=== PATIENT | male | born 1950 | race Caucasian/White ===

== ENCOUNTER 2021-05-16 10:28 | Emergency (ER) | payer OTHER ==
[2021-05-16] MEDS ORDERED: Metoprolol Tartrate 5 MG/5 ML VIAL ONE ×2 (11:11→17:51)
[2021-05-16 11:20] LABS: #Lymphocytes 0.5 thou/uL (1.20-3.40); #Monocytes 0.6 thou/uL (0.11-0.59); #Neutrophils 5.6 thou/uL (1.40-6.50); %Basophils 0.6 % (0.0-1.0); %Eosinophils 0.1 % (0.0-10.0); %Lymphocytes 6.8 % (21.0-51.0); %Monocytes 8.6 % (0.0-10.0); %Neutrophils 83.9 % (42.0-75.0); Hemoglobin 9.6 g/dL (14.0-18.0); Mean Corpuscular HGB CONC 31.8 g/dL (32.0-36.0); Mean Corpuscular Volume 91.2 fL (78.0-98.0); Mean Platelet Volume 7.3 fL (7.4-10.4); Platelet Count 177 thou/uL (130-400); RBC Distribution Width 17.2 % (11.5-14.5); Red Blood Cell (RBC) Count 3.31 mill/uL (4.70-6.10); White Blood Cell (WBC) Count 6.7 thou/uL (4.8-10.8)
[2021-05-16 11:27] LABS: INR-International Normal Ratio 1.7; PTT 55.7 sec (22.9-36.1); Prothrombin Time 19.8 sec (12.0-14.7)
[2021-05-16] MEDS ORDERED: Sodium Chloride 0.9% 100 ML ONE (11:33)
[2021-05-16] MEDS ORDERED: Sodium Chloride 0.9% 250 ML 250 ML ONE (11:33)
[2021-05-16] MEDS ORDERED: Cefepime 2 GM VIAL ONE (11:33)
[2021-05-16 11:36] LABS: Base Excess-Venous 0.5 mmol/L (-2.0 to 3.0); Bicarbonate (HCO3v) 27.1 mmol/L (22.0-28.0); CO2 Tension (PvCO2) 51.8 mmHg (42.0-51.0); Calcium, Ionized 1.06 mmol/L (1.15-1.33); Chloride 102 mmol/L (98-107); Hemoglobin - Calc 10.9 g/dL (14.0-18.0); Potassium 3.6 mmol/L (3.5-5.1); Sodium 142 mmol/L (138-145); T. Carbon Dioxide 28.7 mmol/L (22.0-28.0); vO2 Saturation-calc 99.5 % (60.0-85.0)
[2021-05-16 11:38] LABS: ALT (SGPT) 13 U/L (8-55); AST (SGOT) 16 U/L (5-34); Alkaline Phosphatase 72 U/L (40-110); Anion Gap 25 mmol/L (10-20); BUN (Urea Nitrogen) 20 mg/dL (8.4-25.7); Bilirubin, Total 0.9 mg/dL (0.2-1.2); Calc. Creatinine Clearance 0 mL/min (70-130); Calcium 9.3 mg/dL (7.8-10.44); Carbon Dioxide 25 mmol/L (23-31); Chloride 95 mmol/L (98-107); Globulin 4.4 g/dL (2.4-3.5); Glucose 225 mg/dL (80-115); Lipase 28 U/L (8-78); Potassium 3.8 mmol/L (3.5-5.1); Protein, Total 7.4 g/dL (5.8-8.1); Sodium 141 mmol/L (136-145)
[2021-05-16] MEDS ORDERED: Amiodarone In Dextrose 200 ML ONE ×2 (12:16→18:34)
[2021-05-16] MEDS ORDERED: Amiodarone 150 MG/3 ML VIAL ONE (12:16)
[2021-05-16 12:41] LABS: SARS-CoV-2 NAA Rapid Test DETECTED (NotDetected)
[2021-05-16 14:27] LABS: Lactic Acid 2.4 mmol/L (0.5-2.2)
[2021-05-17] MEDS ORDERED: Cefepime 2 GM VIAL ONE (04:26)
[2021-05-17] MEDS ORDERED: Metoprolol Tartrate 5 MG/5 ML VIAL ONE (04:26)
[2021-05-17] MEDS ORDERED: Sodium Chloride 0.9% 100 ML ONE (04:26)
[2021-05-17] MEDS ORDERED: Vancomycin HCl 750 MG VIAL ONE (05:04)
[2021-05-17] MEDS ORDERED: Sodium Chloride 0.9% 250 ML 250 ML ONE (05:05)
[2021-05-17] MEDS ORDERED: Amiodarone 200 MG TAB ONE (06:17)
[2021-05-17] MEDS ORDERED: Metoprolol Tartrate 50 MG TAB ONE (09:08)
[2021-05-17] MEDS ORDERED: Promethazine HCl 25 MG/ML VIAL ONE (10:05)
== END 2021-05-16 16:58 | disposition short-term general hospital (02) ==
LOC: MADERS 10:28
DX: U07.1 COVID-19 (principal); A41.9 Sepsis, unspecified organism; I48.20 Chronic atrial fibrillation, unspecified; J12.82 Pneumonia due to coronavirus disease 2019; N18.6 End stage renal disease; Z79.899 Other long term (current) drug therapy
CPT/HCPCS: 36415; 36416; 70450; 71045; 74176; 80053; 82330; 82803; 83605; 83690; 83735; 84443; 84484; 85025; 85610; 85730; 87040; 93005; 94760; 96365; 96366; 96367; 96375; 96376; J0282; J0692; J1956; J2550; J3370; J3490; J7050; U0002